=== PATIENT | male | born 1960 | race Caucasian/White ===

== ENCOUNTER 2018-08-12 07:55 | Outpatient (CLI) | payer OTHER ==
[~2018-08-12 07:55] MED LIST: CEFADROXIL500 MG PO; PERCOCET 5/321 UDTAB PO
== END 2018-08-12 19:00 | disposition home or self-care (01) ==
LOC: LAB 07:55
DX: I10 Essential (primary) hypertension (principal); E08.9 Diabetes mellitus due to underlying condition without complications

== ENCOUNTER 2018-08-12 10:23 | Outpatient (CLI) | payer OTHER | END 2018-08-12 16:17 | disposition home or self-care (01) | LOC: MRI 10:23 | DX: M62.838 Other muscle spasm (principal); M54.5 Low back pain; I10 Essential (primary) hypertension; E08.9 Diabetes mellitus due to underlying condition without complications; M25.541 Pain in joints of right hand | CPT/HCPCS: 72148; 73218 ==

== ENCOUNTER → 2018-08-14 11:52 | Outpatient (CLI) | payer OTHER | END | disposition home or self-care (01) | LOC: LAB 11:52 | DX: I10 Essential (primary) hypertension (principal); E08.69 Diabetes mellitus due to underlying condition with other specified complication ==

== ENCOUNTER 2018-08-19 11:36 | Outpatient (CLI) | payer OTHER ==
[2018-08-21] MEDS ORDERED: GABAPENTIN300 MG PO (12:15)
== END 2018-08-19 11:40 | disposition home or self-care (01) ==
LOC: LAB 11:36
DX: I10 Essential (primary) hypertension (principal)

== ENCOUNTER 2024-08-18 11:13 | Outpatient (CLI) | payer OTHER ==
[~2024-08-18 11:13] MED LIST changes: +GABAPENTIN300 MG PO
== END 2024-08-18 11:15 | disposition home or self-care (01) ==
LOC: RAD 11:13
PROVIDERS: ATTEND General Practice
DX: R05.9 Cough, unspecified (principal); R06.02 Shortness of breath; I10 Essential (primary) hypertension; E11.8 Type 2 diabetes mellitus with unspecified complications

== ENCOUNTER 2025-05-25 06:46 | Outpatient (CLI) | payer OTHER ==
[2025-05-25 07:42] LABS: URINE APPEARANCE Clear; URINE BILIRRUBIN Negative (NEGATIVE); URINE BLOOD Small; URINE COLOR Yellow; URINE GLUCOSE Negative (NEGATIVE); URINE KETONE Trace (NEGATIVE); URINE LEUKOCYTE Trace; URINE NITRATE Negative; URINE PROTEIN Negative (NEGATIVE); URINE UROBILINOGEN 0.2 E.U./dl
[2025-05-25 07:44] LABS: URINE BACTERIA 218.2 uL (0.0-1933); URINE CAST 4.10 uL (0.0-1.40); URINE EPITHELIAL CELLS 19.5 uL (0.0-38.8); URINE RBC 10.1 uL (0.0-20.8); URINE WBC 15.2 uL (0.0-23.2)
[2025-05-25 07:45] LABS: BASO % 0.9 % (0.1-1.2); EOS # 0.39 (0.04-0.54); EOS % 4.3 % (0.7-7.0); LYMPH # 1.59 (1.18-3.74); LYMPH % 17.4 % (19.3-53.1); MEAN PLATELET VOLUME 8.90 fl (9.4-12.4); MONO # 0.77 (0.24-0.82); MONO % 8.4 % (4.7-12.5); NEUT # 6.17 (1.56-6.13); NEUT % 67.5 % (34.0-71.1); RED CELL DISTRIBUTION WIDTH 13.3 % (11.6-14.4)
[2025-05-25 08:27] LABS: ALT/SGPT 19.0 U/L (12-78); AST/SGOT 13.0 U/L (15-37); BILIRUBIN TOTAL 0.56 mg/dL (0.3-1.2); BUN CREA RATIO 16.0 (7.0-25.0); CHOL HDL RATIO 2.6 (0-5.0); CREATININE SERUM 0.98 mg/dL (0.70-1.30); GFR 76.52; GLOBULINA 3.3 G/DL (2.4-3.5); GLUCOSE FASTING 106.0 mg/dL (65-100); HDL 67.0 mg/dl (40-60); LDL 95.0 mg/dl (0-130); OSMOLALITY SERUM 279.0 MOSM/KG (275-295); PROSTATIC SPECIFIC ANTIGEN 0.185 NG/ML (0.010-4.00); TSH 1.39 uIU/mL (0.358-3.74); VLDL 13.0 (0-39)
== END 2025-05-25 06:54 | disposition home or self-care (01) ==
LOC: LAB 06:46
PROVIDERS: ATTEND Specialist
DX: E11.9 Type 2 diabetes mellitus without complications (principal); E78.5 Hyperlipidemia, unspecified; Z12.5 Encounter for screening for malignant neoplasm of prostate; Z12.11 Encounter for screening for malignant neoplasm of colon; I10 Essential (primary) hypertension

== ENCOUNTER 2025-05-25 07:50 | Outpatient (CLI) | payer OTHER | END 2025-05-25 07:57 | disposition home or self-care (01) | LOC: MRI 07:50 | PROVIDERS: ATTEND Specialist | DX: M54.12 Radiculopathy, cervical region (principal); M54.16 Radiculopathy, lumbar region; M54.50 Low back pain, unspecified; M54.89 Other dorsalgia; M54.6 Pain in thoracic spine; E78.5 Hyperlipidemia, unspecified; E11.9 Type 2 diabetes mellitus without complications; I10 Essential (primary) hypertension | CPT/HCPCS: 72141; 72146; 72148 ==

== ENCOUNTER → 2025-05-28 07:20 | Outpatient (CLI) | payer OTHER ==
[2025-05-28 09:28] LABS: ob NEGATIVE (NEGATIVE)
== END | disposition home or self-care (01) ==
LOC: LAB 07:20
PROVIDERS: ATTEND Specialist
DX: I10 Essential (primary) hypertension (principal); E11.9 Type 2 diabetes mellitus without complications; E78.5 Hyperlipidemia, unspecified; Z12.5 Encounter for screening for malignant neoplasm of prostate; Z12.11 Encounter for screening for malignant neoplasm of colon

== ENCOUNTER 2025-06-01 07:14 | Outpatient (CLI) | payer OTHER ==
[2025-06-02] MEDS ORDERED: DULOXETINE HCL30 MG PO (15:05)
== END 2025-06-01 07:24 | disposition home or self-care (01) ==
LOC: RAD 07:14
PROVIDERS: ATTEND Specialist
DX: R82.998 Other abnormal findings in urine (principal); M54.9 Dorsalgia, unspecified; F17.210 Nicotine dependence, cigarettes, uncomplicated

== ENCOUNTER 2025-08-22 10:20 | Outpatient (CLI) | payer OTHER ==
[~2025-08-22 10:20] MED LIST changes: +DULOXETINE HCL30 MG PO
== END 2025-08-22 10:28 | disposition home or self-care (01) ==
LOC: RAD 10:20
PROVIDERS: ATTEND Specialist
DX: R05.9 Cough, unspecified (principal)